=== PATIENT | male | born 1955 | race Caucasian/White ===

== ENCOUNTER 2017-04-05 05:49 | Outpatient (CLI) | payer BC ==
[~2017-04-05] VITALS: Ht 170.2 cm; Wt 113.4 kg
[2017-04-05] MEDS ORDERED: LORA10TA7 PO ×2 (09:19)
[2017-04-05] MEDS ORDERED: CHOL20003 PO ×2 (09:19)
[2017-04-05] MEDS ORDERED: VITA1CAP PO ×2 (09:19)
[2017-04-05] MEDS ORDERED: IBUP200C75 PO ×2 (09:19)
[2017-04-05] MEDS ORDERED: ASEN5TAB7 SL ×2 (09:19)
[2017-04-05] MEDS ORDERED: LORA1TAB PO ×2 (09:19)
[2017-04-05] MEDS ORDERED: GLUC1TAB29 PO ×2 (09:19)
[2017-04-05] MEDS ORDERED: LAMO200T PO ×2 (09:19)
[2017-04-05] MEDS ORDERED: MULT-517 PO ×2 (09:19)
[2017-04-05] MEDS ORDERED: LISI10TA2 PO ×2 (09:19)
[2017-04-05] MEDS ORDERED: BUPR150T14 PO ×2 (09:19)
== END 2017-04-05 09:25 ==
LOC: PREOP 05:49
PROVIDERS: ATTEND Surgery
DX: Z01.818 Encounter for other preprocedural examination (principal); Z12.11 Encounter for screening for malignant neoplasm of colon

== ENCOUNTER 2017-04-08 08:24 | Day surgery (SDC) | payer BC, OTHER ==
[~2017-04-08 08:24] MED LIST: ASEN5TAB7 SL; BUPR150T14 PO; CHOL20003 PO; GLUC1TAB29 PO; IBUP200C75 PO; LAMO200T PO; LISI10TA2 PO; LORA10TA7 PO; LORA1TAB PO; MULT-517 PO; VITA1CAP PO
[2017-04-08] MEDS ORDERED: NS IV 500 ML 500 ML ONE (08:26)
[2017-04-08 08:30] VITALS: BP 127/73
[2017-04-08] MEDS ORDERED: NS IV 500 ML 500 ML IV PRN (08:45)
--- NOTE | 2017-04-08 09:05 | History & Physicial ---
JUAN CHOW MEDICAL STUDENT 04/08/17 9:05am: History of Present Illness History of Present Illness Reason for visit/HPI This gentleman came in for a screening colonoscopy. He denied stomach upset, diarrhea, constipation, or blood in stool. He denied any family history of colon cancer or polyps. He did mention that his father suffered from liver and bladder cancer. He had an aunt with an unknown abdominal cancer as well. Date of Admission 04/08/2017 Date Seen by Provider: Apr 08, 2017 I consulted on this patient on 04/08/17 08:45 Attending Physician Jaxon Harris MD Admitting Physician Angel Canales DO Consult Allergies and Home Medications Allergies Coded Allergies: codeine (Verified Allergy, Intermediate, ITCHING, 04/05/17) Home Medications Asenapine Maleate 5 Mg Tab.subl, 15 MG SL HS, (Reported) Bupropion HCl 150 Mg Tablet.er, 450 MG PO DAILY, (Reported) Cholecalciferol (Vitamin D3) 2,000 Unit Capsule, 2,000 UNIT PO DAILY, (Reported) Gluc/Mookie-MSM#1/Vit C/Damian/Bor 1 Each Tablet, 1 EACH PO BID, (Reported) Ibuprofen 200 Mg Capsule, 200 MG PO PRN, (Reported) Lamotrigine 200 Mg Tablet, 200 MG PO DAILY, (Reported) Lisinopril 10 Mg Tablet, 10 MG PO DAILY, (Reported) Loratadine 10 Mg Tablet, 10 MG PO DAILY, (Reported) Lorazepam 1 Mg Tablet, 1 MG PO HS, (Reported) Multivitamin 1 Each Tablet, 1 EACH PO DAILY, (Reported) Vitamin B Complex 1 Each Capsule, 1 EACH PO DAILY, (Reported) Past Lffohid-Aqcbqw-Qkcalu Hx Patient Social History Marrital Status: Employed/Student: employed Alcohol Use: Denies Use Recreational Drug Use: No Smoking Status: Never a Smoker Former Smoker, Quit: Apr 05, 1972 Recent Foreign Travel: No Contact w/other who traveled: No Recent Hopitalizations: No Recent Infectious Disease Expo: No Immunizations Up To Date Date of Pneumonia Vaccine: May 24, 2014 Date of Influenza Vaccine: May 21, 2016 Seasonal Allergies Seasonal Allergies: Yes Surgeries Prostatectomy, Vasectomy Respiratory Currently Using CPAP: Yes Cardiovascular Hypertension Reproductive System Hx Reproductive Disorders: No Sexually Transmitted Disease: No HIV/AIDS: No Musculoskeletal Arthritis HEENT Loss of Vision: Denies Cancer Prostate Did You Recieve Any Treatments: Yes Type of Treatment: Surgical Intervention Psychosocial Behavioral Health Disorders: Anxiety, Depression Blood Transfusions Adverse Reaction to a Blood Tr: No (N/A) Constitutional: no symptoms reported EENTM: see HPI Respiratory: no symptoms reported, see HPI Cardiovascular: no symptoms reported, see HPI Gastrointestinal: no symptoms reported, No abdominal pain, No constipation, No diarrhea, No melena, No nausea, No vomiting Genitourinary: hesitancy Musculoskeletal: joint pain Skin: see HPI Psychiatric/Neurological: Headache Physical Exam Vital Signs Capillary Refill : General Appearance: No Apparent Distress Eyes: Bilateral Eye Normal Inspection, Bilateral Eye PERRL, Bilateral Eye EOMI HEENT: PERRL/EOMI, TMs Normal, Normal ENT Inspection, Pharynx Normal Neck: Full Range of Motion, Normal Inspection, Non Tender, Supple, Carotid Bruit Respiratory: Lungs Clear, Normal Breath Sounds, No Respiratory Distress Cardiovascular: Regular Rate, Rhythm Gastrointestinal: Normal Bowel Sounds, Non Tender Rectal: Deferred Back: Normal Inspection, No CVA Tenderness, No Vertebral Tenderness Extremity: Normal Capillary Refill, Normal Inspection, Normal Range of Motion, Non Tender, No Calf Tenderness, No Pedal Edema Neurologic/Psychiatric: Alert, Oriented x3 Skin: Normal Color JAXON HARRIS MD 04/08/17 9:12am: History of Present Illness History of Present Illness Time Seen by Provider: 09:12 Allergies and Home Medications Allergies Coded Allergies: codeine (Verified Allergy, Intermediate, ITCHING, 04/05/17) Home Medications Asenapine Maleate 5 Mg Tab.subl, 15 MG SL HS, (Reported) Bupropion HCl 150 Mg Tablet.er, 450 MG PO DAILY, (Reported) Cholecalciferol (Vitamin D3) 2,000 Unit Capsule, 2,000 UNIT PO DAILY, (Reported) Gluc/Mookie-MSM#1/Vit C/Damian/Bor 1 Each Tablet, 1 EACH PO BID, (Reported) Ibuprofen 200 Mg Capsule, 200 MG PO PRN, (Reported) Lamotrigine 200 Mg Tablet, 200 MG PO DAILY, (Reported) Lisinopril 10 Mg Tablet, 10 MG PO DAILY, (Reported) Loratadine 10 Mg Tablet, 10 MG PO DAILY, (Reported) Lorazepam 1 Mg Tablet, 1 MG PO HS, (Reported) Multivitamin 1 Each Tablet, 1 EACH PO DAILY, (Reported) Vitamin B Complex 1 Each Capsule, 1 EACH PO DAILY, (Reported) Physical Exam Vital Signs Vital Sign - Last 12Hours 04/08/17 08:30 Temp 98.7 Pulse 74 Resp 18 B/P (MAP) 127/73 Pulse Ox 95 Assessment/Plan Assessment and Plan gentleman for screening colonoscopy. Polyps, diverticulosis etc. reviewed. Seems to be in agreement to proceed Problems: JUAN CHOW MEDICAL STUDENT Apr 08, 2017 9:05 am JAXON HARRIS MD Apr 08, 2017 9:12 am
--- NOTE | 2017-04-08 09:12 | Conscious Sedation/ASA ---
Conscious Sedation Pre-Proced Time Reviewed: 09:12 ASA Class: 2 Airway Mallampati Classification: ([place] appropriate class) I. II. III, IV Lungs Heart ASA score ASA 1: a normal healthy patient ASA 2: a patient with a mild systemic disease (mid diabetes, controlled hypertension, obesity ASA 3: a patient with a severe systemic disease that limits activity (angina , COPD, prior Myocardial infarction) ASA 4: a patient with an incapacitating disease that is a constant threat to life (CHF, renal failure) ASA 5: a moribund patient not expected to survive 24 hrs. (ruptured aneurysm) ASA 6: a declared brain patient whose organs are being harvested. For emergent operations, add the letter E after the classification Grade 2 Sedation Plan: Discussed options with patient/fam Note The patient is an appropriate candidate to undergo the planned procedure, sedation, and anesthesia. The patient immediately re-assessed prior to indication. OUMAR HARRIS MD Apr 08, 2017 9:12 am
[2017-04-08] MEDS ORDERED: fentaNYL INJECTION 100 MCG/2 ML AMP ONE ×2 (09:39)
[2017-04-08] MEDS ORDERED: MIDAZOLAM 2 MG/2 ML (VERSED) VIAL ONE ×3 (09:39)
[2017-04-08] MEDS: fentaNYL INJECTION 100 MCG/2 ML AMP IVP PRN ×2 (09:46→09:49)
[2017-04-08] MEDS: MIDAZOLAM 2 MG/2 ML (VERSED) VIAL IVP PRN ×2 (09:48→09:50)
--- NOTE | 2017-04-08 10:01 | Endo Procedure Record ---
Endo Procedure Report Date of Procedure Apr 08, 2017 Surgeon (s) OUMAR HARRIS MD Post Procedure/Op Diagnosis very few sigmoid diverticula Procedure Performed colonoscopy to cecum Description of Procedure Anesthesia Type: Conscious Sedation Specimen(s) collected/removed none Description of the Procedure Indication for procedure: This gentleman came in for screening colonoscopy. He denied any family history of colon cancer or polyps. Informed consent was obtained after reviewing the procedure in detail. Description of the procedure: He was placed in left lateral decubitus position and his vital signs were monitored. Conscious sedation was achieved using Versed and fentanyl. Digital rectal examination was unremarkable. The colonoscope was then introduced in the rectum and advanced all the way up to the cecum. The scope was then withdrawn slowly and the mucosa examined in a systematic fashion. Finding: Very few sigmoid diverticula. He tolerated the procedure well and was taken back to the nursing area in a stable condition. Impression: Screening colonoscopy. No polyps. No family history. Recommend repeating in 10 years. Copies To: yaritza chowdary XAVIER M MD Apr 08, 2017 10:01 am
--- NOTE | 2017-04-08 10:04 | Discharge Inst-Simple/Standard ---
Discharge Inst-Standard Discharge Medications New, Converted or Re-Newed RX: Other Patient Instructions/Follow Up Plan of Care/Instructions/FU: repeat colonoscopy in 10 years Activity as Tolerated: Yes Discharge Diet: No Restrictions OUMAR HARRIS MD Apr 08, 2017 10:04 am
[2017-04-08 10:25] VITALS: BP 128/72
[2017-04-08 10:55] VITALS: BP 116/69
[2017-04-08 11:10] VITALS: BP 116/69
--- OUTSIDE RECORDS SUMMARY | 2017-04-08 12:51 | XMS REPORT | Clinical Summary ---
Author Author [facility] Organization [facility] Address Unknown Phone Unavailable Care Team Providers Care Bridge Attacher Name Role Phone PCP Unavailable Source Comments Some departments are not documenting in the electronic medical record. If you do not see the information that you expected, contact Release of Information in the Health Information Management department at [phone] for further assistance in locating additional records.[facility] Allergies Not on File Current Medications Not on file Active Problems Not on file Social History Tobacco Use Types Packs/Day Years Used Date Never Assessed Sex Assigned at Date Recorded Not on file Last Filed Vital Signs Not on file Plan of Treatment Health Maintenance Due Date Last Done Comments HEPATITIS C SCREENING 1954 PHYSICAL (COMPREHENSIVE) 1961 EXAM PERTUSSIS VACCINE 1965 TETANUS VACCINE 1971 COLORECTAL CANCER 2004 SCREENING SHINGLES VACCINE 2014 INFLUENZA VACCINE 04/12/2017 Results Not on filefrom Last 3 Months
== END 2017-04-08 11:10 | disposition home or self-care (01) ==
LOC: ENDO 08:24
PROVIDERS: ATTEND Surgery
DX: Z12.11 Encounter for screening for malignant neoplasm of colon (principal); K57.30 Diverticulosis of large intestine without perforation or abscess without bleeding; I10 Essential (primary) hypertension; F41.9 Anxiety disorder, unspecified; F32.9 Major depressive disorder, single episode, unspecified; Z85.46 Personal history of malignant neoplasm of prostate; Z79.899 Other long term (current) drug therapy